=== PATIENT | male | born 2000 | race Caucasian/White ===

== ENCOUNTER 2021-01-23 05:41 | Emergency (ER) | payer MEDICAID ==
[~2021-01-23] VITALS: Ht 170.2 cm; Wt 90.0 kg
[2021-01-23] MEDS ORDERED: ACETAMINOPHEN WITH CODEINE 300/30MG TABLET PO ONE (06:30)
[2021-01-23 06:50] LABS: CLARITY URINE CLOUDY (CLEAR); COLOR URINE DARK YELLOW (YELLOW); KETONES URINE TRACE (NEGATIVE); LEUKOCYTE ESTERASE URINE TRACE (NEGATIVE); NITRITE URINE NEGATIVE (NEGATIVE); OCCULT BLOOD URINE 3+ (NEGATIVE); PH URINE 5.5 (4.5-8.0); PROTEIN URINE 2+ (NEGATIVE); SPECIFIC GRAVITY URINE 1.025 (1.005-1.030)
[2021-01-23] MEDS ORDERED: T3 PO (08:16)
[2021-01-23 08:52] VITALS: BP 133/87
[2021-01-23] MEDS ORDERED: CEPH500C2 MT (21:02)
[2021-01-23] MEDS ORDERED: ONDA4TAB5 MT (21:02)
[2021-01-24] MEDS ORDERED: HYDR-4001 MT ×2 (19:22→21:55)
[2021-01-24] MEDS ORDERED: TAMS-11 MT (19:23)
== END 2021-01-23 08:58 | disposition home or self-care (01) ==
LOC: ER 06:29
DX: R33.9 Retention of urine, unspecified (principal)
CPT/HCPCS: 76770; 81003; 99284

== ENCOUNTER 2021-01-23 13:43 | Emergency (ER) | payer MEDICAID ==
[~2021-01-23] VITALS: Ht 170.2 cm; Wt 91.0 kg
[~2021-01-23 13:43] MED LIST: T3 PO
[2021-01-23 14:44] LABS: HEMATOCRIT. 45.6 % (42.0-52.0); HEMOGLOBIN. 14.7 g/dL (14.0-18.0); MEAN CORPUSCULAR HEMOGLOBIN 27.2 pg (28.0-32.0); MEAN CORPUSCULAR VOLUME 84.3 fL (80.0-94.0); MEAN PLATELET VOLUME 9.3 fl (7.4-10.4); PLATELET 403 x1000/uL (130-400); RED BLOOD CELL COUNT 5.41 mill/uL (4.7-6.1); RED CELL DISTRIBUTION WIDTH 14.5 % (11.6-14.6)
[2021-01-23 14:51] LABS: CHLORIDE 107 mEq/L (98-107)
[2021-01-23 15:20] LABS: PLATELET ESTIMATE SLIGHTLY INCREASED
[2021-01-23] MEDS ORDERED: FAMOTIDINE 20MG/2ML VIAL IV NR (17:15)
[2021-01-23] MEDS ORDERED: SODIUM CHLORIDE 0.9% 1,000 ML IV ONE (17:15)
[2021-01-23] MEDS ORDERED: ONDANSETRON HCL 4MG/2ML INJ IV NR (17:15)
[2021-01-23] MEDS ORDERED: MAGNESIUM/ALUMINUM HYDROXIDE/SIMETHICONE 30ML UDC PO NR (17:15)
[2021-01-23] MEDS ORDERED: KETOROLAC 30MG/ML VIAL IV ONE (17:30)
[2021-01-23 18:06] LABS: BASOPHILS % 0.5 % (0.0-2.0); EOSINOPHILS % 0.5 % (0.0-5.0); HEMATOCRIT. 45.3 % (42.0-52.0); HEMOGLOBIN. 14.9 g/dL (14.0-18.0); LYMPHOCYTES % 10.4 % (20.0-50.0); MEAN CORPUSCULAR HEMOGLOBIN 28.1 pg (28.0-32.0); MEAN CORPUSCULAR VOLUME 85.7 fL (80.0-94.0); MEAN PLATELET VOLUME 9.2 fl (7.4-10.4); MONOCYTES % 8.2 % (2.0-8.0); NEUTROPHILS % 80.4 % (40.0-76.0); PLATELET 415 x1000/uL (130-400); RED BLOOD CELL COUNT 5.29 mill/uL (4.7-6.1); RED CELL DISTRIBUTION WIDTH 14.2 % (11.6-14.6)
[2021-01-23 18:13] LABS: CHLORIDE 106 mEq/L (98-107)
[2021-01-23 19:55] LABS: CLARITY URINE CLEAR (CLEAR); COLOR URINE YELLOW (YELLOW); KETONES URINE 3+ (NEGATIVE); LEUKOCYTE ESTERASE URINE NEGATIVE (NEGATIVE); NITRITE URINE NEGATIVE (NEGATIVE); OCCULT BLOOD URINE 1+ (NEGATIVE); PROTEIN URINE NEGATIVE (NEGATIVE); SPECIFIC GRAVITY URINE 1.015 (1.005-1.030); UROBILINOGEN URINE 0.2 E.U./dL (0.2-1.0)
[2021-01-23] MEDS ORDERED: CEPH500C2 MT (21:02)
[2021-01-23] MEDS ORDERED: ONDA4TAB5 MT (21:02)
[2021-01-23 21:15] VITALS: BP 121/76
[2021-01-24] MEDS ORDERED: HYDR-4001 MT ×2 (19:22→21:55)
[2021-01-24] MEDS ORDERED: TAMS-11 MT (19:23)
== END 2021-01-23 21:16 | disposition home or self-care (01) ==
LOC: ER 13:43
DX: N39.0 Urinary tract infection, site not specified (principal); N20.0 Calculus of kidney
CPT/HCPCS: 36415; 71045; 80053; 81003; 83690; 85025; 96361; 96374; 96375; 99284; J1885; J2405; J3490; Z7610

== ENCOUNTER 2021-01-24 16:31 | Emergency (ER) | payer MEDICAID ==
[~2021-01-24] VITALS: Ht 170.2 cm; Wt 91.0 kg
[~2021-01-24 16:31] MED LIST changes: +CEPH500C2 MT; +ONDA4TAB5 MT
[2021-01-24] MEDS ORDERED: KETOROLAC 15MG/ML VIAL IM ONE (17:30)
[2021-01-24] MEDS ORDERED: KETOROLAC 30MG/ML VIAL IM NR (18:15)
[2021-01-24 18:19] LABS: CLARITY URINE CLEAR (CLEAR); COLOR URINE YELLOW (YELLOW); KETONES URINE 1+ (NEGATIVE); LEUKOCYTE ESTERASE URINE NEGATIVE (NEGATIVE); NITRITE URINE NEGATIVE (NEGATIVE); OCCULT BLOOD URINE TRACE (NEGATIVE); PH URINE 5.5 (4.5-8.0); PROTEIN URINE NEGATIVE (NEGATIVE); SPECIFIC GRAVITY URINE 1.018 (1.005-1.030); UROBILINOGEN URINE 0.2 E.U./dL (0.2-1.0)
[2021-01-24] MEDS ORDERED: HYDR-4001 MT ×2 (19:22→21:55)
[2021-01-24] MEDS ORDERED: TAMS-11 MT (19:23)
[2021-01-24 19:45] VITALS: BP 137/87
== END 2021-01-24 19:55 | disposition home or self-care (01) ==
LOC: ER 16:31
DX: N20.0 Calculus of kidney (principal); Z79.899 Other long term (current) drug therapy; Z98.890 Other specified postprocedural states
CPT/HCPCS: 74176; 81003; 99284; J1885

== ENCOUNTER 2021-01-26 13:39 | Emergency (ER) | payer MEDICAID ==
[~2021-01-26] VITALS: Ht 170.2 cm; Wt 91.0 kg
[~2021-01-26 13:39] MED LIST changes: +HYDR-4001 MT; +TAMS-11 MT
[2021-01-26] MEDS ORDERED: IBUP-2030 MT (17:12)
[2021-01-26] MEDS ORDERED: KETOROLAC 30MG/ML VIAL IM ONE (17:15)
[2021-01-26 17:36] VITALS: BP 143/94
== END 2021-01-26 17:42 | disposition home or self-care (01) ==
LOC: ER 13:39
DX: N20.1 Calculus of ureter (principal)
CPT/HCPCS: 96372; 99283; J1885